=== PATIENT | female | born 1990 | race Caucasian/White ===

== ENCOUNTER → 2017-07-05 | Outpatient (CLI) | payer BC ==
[~2017-07-05] VITALS: Ht 170.2 cm; Wt 125.0 kg
[2017-07-05 13:39] VITALS: BP 137/88; PULSE 114; Ht 170.2 cm; Wt 125.0 kg
== END ==
LOC: C.NEUR 13:02
PROVIDERS: ATTEND Physician Assistant Medical
DX: R53.83 Other fatigue (principal); R40.0 Somnolence; E66.01 Morbid (severe) obesity due to excess calories; F31.9 Bipolar disorder, unspecified; F41.8 Other specified anxiety disorders